=== PATIENT | female | born 1995 | race Caucasian/White ===

== ENCOUNTER 2024-06-03 10:44 | Outpatient (CLI) | payer MEDICAID | END 2024-06-03 10:45 | disposition home or self-care (01) | LOC: CSHULT 10:44 | PROVIDERS: ATTEND Family Medicine | DX: Z34.82 Encounter for supervision of other normal pregnancy, second trimester (principal); Z3A.20 20 weeks gestation of pregnancy | CPT/HCPCS: 76805 ==

== ENCOUNTER 2024-10-07 01:22 | Inpatient (IN) | payer MEDICAID ==
[2024-10-07 01:37] VITALS: BMI 26.8
[2024-10-07] MEDS ORDERED: hydrALAZINE 20 MG/ML VIAL SLOW IVP PRN ×2 (02:26→03:53)
[2024-10-07] MEDS ORDERED: Carboprost 250 MCG/ML AMP IM PRN (03:53)
[2024-10-07] MEDS ORDERED: Methylergonovine 0.2 MG/ML VIAL IM PRN (03:53)
[2024-10-07] MEDS ORDERED: Diphenoxylate HCl/Atropine Tablet PO PRN (03:53)
[2024-10-07] MEDS ORDERED: Misoprostol 200 MCG TAB PR PRN (03:53)
[2024-10-07] MEDS ORDERED: fentaNYL 50 mcg/mL 1 mL Vial SLOW IVP PRN (03:53)
[2024-10-07] MEDS ORDERED: Tranexamic Acid 1,000 MG/10 ML VIAL IVP PRN (03:53)
[2024-10-07] MEDS ORDERED: Promethazine HCl 25 MG/ML VIAL IM PRN ×2 (03:53→08:58)
[2024-10-07] MEDS ORDERED: Zolpidem Tartrate 5 MG TAB PO PRN (03:53)
[2024-10-07] MEDS ORDERED: Docusate 100 MG CAP PO PRN (03:53)
[2024-10-07] MEDS ORDERED: Acetaminophen 500 MG TAB PO PRN (03:53)
[2024-10-07] MEDS ORDERED: Acetaminophen/Codeine 30-300mg Tablet PO PRN (03:55)
[2024-10-07] MEDS ORDERED: Lidocaine 1% (PF) 30 ML VIAL SC PRN (03:55)
[2024-10-07] MEDS ORDERED: Ibuprofen 800 MG TAB PO PRN (03:55)
[2024-10-07] MEDS ORDERED: Oxytocin 30 units/NS 500 ML 500 ML IV SCH (04:00)
[2024-10-07 04:12] LABS: Hematocrit 27.9 % (34.9-44.5); Hemoglobin 9.4 g/dL (12.0-15.5); Mean Corpuscular HGB CONC 33.7 g/dL (32.0-36.0); Mean Corpuscular Hemoglobin 27.7 pg (27.0-33.0); Mean Corpuscular Volume 82.3 fL (81.6-98.3); Platelet Count 316 10x3/uL (150-450); RBC Distribution Width 13.7 % (11.5-14.5); Red Blood Cell (RBC) Count 3.39 10x6/uL (3.90-5.03); White Blood Cell (WBC) Count 10.77 10x3/uL (3.5-10.5)
[2024-10-07 04:51] LABS: HBsAg Index 0.16 S/CO (0-0.99); Hep B Surf Ag - L&D Non-Reactive S/CO (NonReactive)
[2024-10-07 04:52] LABS: Syphilis Antibody Nonreactive (Nonreactive); Syphilis Antibody Index 0.03 S/CO (<1.00 Non-Reactive)
[2024-10-07] MEDS: Ondansetron PF 4 MG/2 ML Vial IVP PRN (07:48)
[2024-10-07] MEDS: fentaNYL/Ropivacaine Epidural 100 ML ONE (08:11)
[2024-10-07] MEDS ORDERED: Naloxone HCl 0.4 mg/ml Vial IVP PRN ×2 (08:58)
[2024-10-07] MEDS ORDERED: ePHEDrine Sulfate 50 MG/10 ML VIAL SLOW IVP PRN (08:58)
[2024-10-07] MEDS ORDERED: Moisturizing Cream (Eucerin) 113 GM JAR TOP PRN (08:58)
[2024-10-07] MEDS ORDERED: diphenhydrAMINE 50 MG/ML VIAL IVP PRN (08:58)
[2024-10-07] MEDS ORDERED: Ondansetron PF 4 MG/2 ML Vial IVP PRN (08:58)
[2024-10-07] MEDS ORDERED: Lactated Ringer's 500 ML IV PRN (08:58)
[2024-10-07] MEDS ORDERED: Communication Order-Pharmacy FS SCH (09:00)
[2024-10-07] MEDS ORDERED: fentaNYL 2 mcg/Ropivacaine 0.2% Epidural 100 ML CADD EPIDURAL SCH (09:00)
[2024-10-07] MEDS: Acetaminophen 325 MG TAB PO PRN (17:11)
[2024-10-07] MEDS ORDERED: HYDROcodone/Acetaminophen 5/325 mg Tablet PO PRN (19:45)
[2024-10-07] MEDS: Ibuprofen 800 MG TAB PO PRN (23:15)
[2024-10-07] MEDS: Lactated Ringer's 1,000 ML IV SCH (23:28)
[2024-10-08 11:16] VITALS: BP 114/78; TEMP 97.3
== END 2024-10-08 19:05 | disposition home or self-care (01) | DRG 807 ==
LOC: CSHLD/OP 01:22 → CSHLD 03:53 → CSHPED 17:29
PROVIDERS: ADMIT Family Medicine; ATTEND Family Medicine
PROC: 10E0XZZ Delivery of Products of Conception, External Approach (ICD-10-PCS; principal; 2024-10-07)
PROC: 10907ZC Drainage of Amniotic Fluid, Therapeutic from Products of Conception, Via Natural or Artificial Opening (ICD-10-PCS; 2024-10-07)
DX: O76 Abnormality in fetal heart rate and rhythm complicating labor and delivery (principal); Z37.0 Single live birth; Z3A.38 38 weeks gestation of pregnancy
CPT/HCPCS: 36415; 51702; 85027; 86780; 86850; 86900; 86901; 87340; 99285; J2405